=== PATIENT | male | born 1955 ===

== ENCOUNTER 2022-08-14 03:58 | Day surgery (SDC) | payer OTHER ==
[2022-08-12 10:43] VITALS: BMI 24.9
[2022-08-14] MEDS ORDERED: MIDAZOLAM HCL 2 MG/2 ML SINGLE DOSE VIAL ONE (15:03)
[2022-08-14] MEDS ORDERED: SODIUM CHLORIDE 0.9% P/F 10 ML VIAL IJ ONE (15:04)
[2022-08-14] MEDS ORDERED: ceFAZolin SODIUM 1 GM VIAL ONE (15:04)
[2022-08-14] MEDS ORDERED: BUPIVACAINE HCL/PF 0.5% (5MG/ML) 10 ML VIAL ONE (15:08)
[2022-08-14] MEDS ORDERED: ceFAZolin SODIUM 1 GM VIAL IVPB ONE (15:18)
[2022-08-14] MEDS ORDERED: BACITRACIN ZINC 15 GM TUBE TOPICAL OINTMENT TP ONE (16:40)
[2022-08-14] MEDS ORDERED: oxyCODONE HCL 5 MG TABLET PO PRN (17:08)
[2022-08-14] MEDS ORDERED: ONDANSETRON 4 MG/2 ML VIAL IVPUSH PRN (17:08)
[2022-08-14] MEDS ORDERED: PROMETHAZINE HCL 25 MG/1 ML VIAL IVPB PRN (17:08)
[2022-08-14] MEDS ORDERED: LACTATED RINGERS SOLUTION 1,000 ML IV SCH (17:15)
[2022-08-14 19:10] VITALS: RESP 16
[2022-08-14 20:17] VITALS: BP 140/96; PULSE 95; TEMP 98
== END 2022-08-14 20:10 | disposition home or self-care (01) ==
LOC: JASU-SURG 03:58
PROVIDERS: ATTEND Urology
PROC: 0V503ZZ Destruction of Prostate, Percutaneous Approach (ICD-10-PCS; principal; 2022-08-14 14:30)
PROC: 0T7D8ZZ Dilation of Urethra, Via Natural or Artificial Opening Endoscopic (ICD-10-PCS; 2022-08-14 14:30)
DX: C61 Malignant neoplasm of prostate (principal); N35.912 Unspecified bulbous urethral stricture, male
CPT/HCPCS: 52281; 55873; C2618; 94760; C1769